=== PATIENT | female | born 1950 | race Caucasian/White ===

== ENCOUNTER 2020-05-03 10:35 | Emergency (ER) | payer BC ==
[~2020-05-03] VITALS: Ht 157.5 cm; Wt 90.7 kg
[2020-05-03 10:53] VITALS: BP_SYST 133
[2020-05-03 12:20] VITALS: BP_SYST 147
== END 2020-05-03 12:21 | disposition home or self-care (01) ==
LOC: SED 10:35
DX: S20.212A Contusion of left front wall of thorax, initial encounter (principal); S80.01XA Contusion of right knee, initial encounter; V49.50XA Passenger injured in collision with unspecified motor vehicles in traffic accident, initial encounter; Y93.89 Activity, other specified; Y92.89 Other specified places as the place of occurrence of the external cause; Y99.8 Other external cause status
CPT/HCPCS: 71045; 73564; 99284